=== PATIENT | male | born 1930 | race Caucasian/White ===

== ENCOUNTER 2016-10-07 19:35 | Emergency (ER) | payer MEDICARE, MEDICAID ==
[~2016-10-07] VITALS: Wt 90.7 kg
[2016-10-07 20:00] LABS: BASO % 0.3 % (0.0-1.0); EOS % 0.5 % (1.0-4.0); HEMATOCRIT 29.9 % (42.0-52.0); HEMOGLOBIN 9.2 g/dl (14.0-18.0); LYMPH # 0.8 10*3/uL (1.3-4.4); LYMPH % 11.4 % (27.0-41.0); MEAN CELL VOLUME 95.5 fl (80.0-94.0); MEAN CORPUSCULAR HGB 29.4 pg (27.0-31.0); MEAN CORPUSCULAR HGB CONC 30.8 g/dl (33.0-37.0); MONO # 0.7 10*3/uL (0.1-1.0); NEUT # 5.8 10*3/uL (2.3-7.9); NEUT % 78.4 % (47.0-73.0); PLATELET COUNT AUTOMATED 293 10*3/uL (130-400); RED BLOOD COUNT 3.13 10*6/uL (4.50-5.90); RED CELL DISTRI WIDTH 16.5 % (0-14.5); WHITE BLOOD COUNT 7.4 10*3/uL (4.8-10.8)
[2016-10-07 20:17] LABS: BUN 17 mg/dl (7-24); CARBON DIOXIDE 33 mmol/L (21-32); CHLORIDE 102 mmol/L (98-107); EST GLOM FILT AFRICAN AMERICAN > 60 ml/min; GLUCOSE 141 mg/dL (65-99); POTASSIUM 3.9 mmol/L (3.5-5.1); SODIUM 144 mmol/L (136-145); TROPONIN I 0.018 ng/ml (<0.045)
[2016-10-07] MEDS ORDERED: ASPIRIN81 M1 PO (20:36)
[2016-10-07] MEDS ORDERED: BUTRANS1 EACH TD (20:37)
[2016-10-07] MEDS ORDERED: COUMADIN3 M1 PO (20:37)
[2016-10-07] MEDS ORDERED: DIOVAN80 M1 PO (20:38)
[2016-10-07] MEDS ORDERED: EFFEXOR XR37.5 MG PO (20:38)
[2016-10-07] MEDS ORDERED: ISOSORBIDE DINI10 M1 PO (20:39)
[2016-10-07] MEDS ORDERED: KLOR-CON SPRIN10 MEQ PO (20:39)
[2016-10-07] MEDS ORDERED: FINASTERIDE5 M1 PO (20:39)
[2016-10-07] MEDS ORDERED: FLOMAX0.4 MG PO (20:39)
[2016-10-07] MEDS ORDERED: PREDNISONE10 MG PO (20:40)
[2016-10-07] MEDS ORDERED: PRAVACHOL40 MG PO (20:40)
[2016-10-07] MEDS ORDERED: LASIX20 MG PO (20:40)
[2016-10-07] MEDS ORDERED: PREDNISONE20 M1 PO (20:41)
[2016-10-07 20:59] LABS: BILIRUBIN NEGATIVE (NEGATIVE); BLOOD NEGATIVE (NEGATIVE); CLARITY CLEAR (CLEAR); COLOR YELLOW (YELLOW); GLUCOSE NEGATIVE (NEGATIVE); KETONE NEGATIVE (NEGATIVE); LEUKO ESTERASE NEGATIVE (NEGATIVE); NITRITE NEGATIVE (NEGATIVE); PH 5.5 (5.0-9.0); PROTEIN NEGATIVE (NEGATIVE); SPECIFIC GRAVITY >= 1.030 (1.005-1.030); UROBILINOGEN 0.2 E.U./dl (0.2-1.0)
[2016-10-07] MEDS ORDERED: SENNA CONCENTR8.6 M1 PO (21:02)
[2016-10-07] MEDS ORDERED: XARE20MG PO (21:02)
[2016-10-07] MEDS ORDERED: [UNRECOGNIZED DRUG - OTHER] PO (21:02)
[2016-10-07] MEDS ORDERED: COREG6.25 MG PO (21:03)
[2016-10-07] MEDS ORDERED: COLACE100 MG PO (21:03)
[2016-10-07] MEDS ORDERED: ELIQUIS5 M1 PO (21:03)
[2016-10-07 21:04] LABS: BACTERIA TRACE; WBC 0-2 wbc/hpf (0-5)
[2016-10-07] MEDS ORDERED: ZANTAC 150150 MG PO (21:04)
[2016-10-07] MEDS ORDERED: OXYCODONE HCL5 M1 PO (21:04)
[2016-10-07] MEDS ORDERED: PROSOURCE275 GM PO (21:04)
[2016-10-07 21:05] LABS: URINE REFLEX COMMENT NO (NO)
[2016-10-07] MEDS ORDERED: SLOW RELEASE47.5 MG PO (21:05)
[2016-10-07] MEDS ORDERED: MEPHYTON5 MG PO (21:06)
== END 2016-10-07 21:23 | disposition home or self-care (01) ==
LOC: ED 19:35
PROVIDERS: Student in an Organized Health Care Education/Training Program
DX: Z00.00 Encounter for general adult medical examination without abnormal findings (principal); R53.1 Weakness; R41.82 Altered mental status, unspecified; Z79.82 Long term (current) use of aspirin; Z79.899 Other long term (current) drug therapy